=== PATIENT | female | born 1950 | race Caucasian/White ===

== ENCOUNTER → 2018-12-02 | Day surgery (SDC) | payer MEDICARE, SELFPAY | END | disposition home or self-care (01) | PROVIDERS: PCP Family Medicine; Visit Provider Internal Medicine Gastroenterology | DX: K21.0 Gastro-esophageal reflux disease with esophagitis (principal); K31.811 Angiodysplasia of stomach and duodenum with bleeding; K44.9 Diaphragmatic hernia without obstruction or gangrene; I10 Essential (primary) hypertension; F17.200 Nicotine dependence, unspecified, uncomplicated; J44.9 Chronic obstructive pulmonary disease, unspecified; G47.30 Sleep apnea, unspecified; R63.4 Abnormal weight loss | CPT/HCPCS: 43239; 88305; J7120; J2704 ==

== ENCOUNTER 2019-07-15 10:34 | Outpatient (CLI) | payer MEDICARE, SELFPAY ==
--- NOTE | ~2019-07-15 | CT_ITS ---
EXAMINATION:CT lung screening DATE: 07/15/2019 11:31 INDICATION: Personal history of tobacco dependence. Current smoker with 46 pack year history. TECHNIQUE: Computed tomography (CT) of the chest was performed without intravenous contrast. Automate d exposure control and iterative reconstruction technique were employed. The dose-length product (DLP ) was 62.28 mGy-cm. COMPARISON: Chest CT 05/20/2018 FINDINGS: There is chronic mild scarring at the lung apices. There is moderate emphysema. There is mi ld bronchiectasis in right middle lobe with mild atelectasis. Again seen is a 5 mm nodule at left michel or fissure. Again seen is a 4 mm nodule in left lower lobe. There are a few scattered 2-3 mm nodules in the lungs. No pleural effusion. The heart size is normal. There are coronary artery calcifications . No pericardial effusion. There is a chronic compression fracture of T11. There is anterior and post erior fusion at T11-T12. There are chronic compression fractures of T8 and L2 vertebral bodies. IMPRESSION: 1. Lung-RADS category 2: Benign appearance or behavior. Continue annual screening with noncontrast lo w-dose chest CT in 12 months. Reviewed, dictated and finalized at location A. IMPRESSION: 1. Lung-RADS category 2: Benign appearance or behavior. Continue annual screeni ng with noncontrast low-dose chest CT in 12 months.
== END 2019-07-15 10:35 | disposition home or self-care (01) ==
PROVIDERS: PCP Family Medicine; Visit Provider Nurse Practitioner Family
DX: Z12.2 Encounter for screening for malignant neoplasm of respiratory organs (principal); Z87.891 Personal history of nicotine dependence
CPT/HCPCS: G0297

== ENCOUNTER → 2020-03-31 10:50 | Outpatient (CLI) | payer MEDICARE, SELFPAY ==
[2020-03-31 22:34] LABS: SARS-CoV-2 RNA PCR Negative
== END ==
PROVIDERS: PCP Family Medicine; Visit Provider Family Medicine
DX: Z20.822 Contact with and (suspected) exposure to COVID-19 (principal); R50.9 Fever, unspecified
CPT/HCPCS: C9803; U0003; U0005

== ENCOUNTER 2022-12-13 14:57 | Outpatient (CLI) | payer MEDICARE, SELFPAY ==
--- NOTE | ~2022-12-13 | XR_ITS ---
[[id number] ] INDICATION: Pleurodynia TECHNIQUE: Frontal projection of the upper ribs, frontal projection of the lower ribs, oblique projec tion of all the ribs, frontal inspiratory chest x-ray for interpretation. FINDINGS: There are no displaced rib fractures identified. There are no soft tissue abnormality see n. The lungs are clear. There is apical pleural thickening/scarring. IMPRESSION: 1:No acute displaced rib fractures. Reviewed, dictated and finalized at location L.
--- NOTE | ~2022-12-13 | XR_ITS ---
XR lumbar spine 2-3V 12/13/2022 15:45 Indication: Low back pain Procedure: 3 views lumbar spine Comparison: 08/09/2004 Findings: Surgical changes consistent with anterior and posterior fusion at L4-5. There is superior e ndplate compression fracture with approximately 30% loss of vertebral body height at L1. Osteopenia. There is disc narrowing at L2-3 and L3-4. There is dextroscoliosis of the thoracolumbar spine. Impression: 1: New age-indeterminate superior endplate compression fracture of L1 with approximately 30% loss of vertebral body height. 2: Moderate lumbar spondylosis with dextroscoliosis and fusion at L4-5. Reviewed, dictated and finalized at location L. Impression: 1: New age-indeterminate superior endplate compression fracture of L1 with appr oximately 30% loss of vertebral body height. 2: Moderate lumbar spondylosis with dextroscoliosis and fusion at L4-5.
== END 2022-12-13 14:58 ==
PROVIDERS: PCP Family Medicine; Visit Provider Family Medicine
DX: M47.896 Other spondylosis, lumbar region (principal); S32.010A Wedge compression fracture of first lumbar vertebra, initial encounter for closed fracture; X58.XXXA Exposure to other specified factors, initial encounter
CPT/HCPCS: 71111; 72100

== ENCOUNTER 2024-05-27 14:54 | Outpatient (CLI) | payer MEDICARE, SELFPAY ==
--- NOTE | ~2024-05-27 | XR_ITS ---
EXAM/PROCEDURE: XR chest 2V - 05/27/2024 15:04 CDT HISTORY: 73 years old Female with COUGH TECHNIQUE: Two view(s) of the chest. COMPARISON: 07/15/2019 FINDINGS: LUNGS/ PLEURA: Lungs are hyperinflated with flattening of the diaphragm and increased lung markings i n both upper lobes, findings seen with COPD. No focal consolidation. No appreciable pneumothorax or l arge pleural effusion. Calcified granulomas again seen. Emphysematous changes are seen. HEART/ MEDIASTINUM: Heart appears normal in size. Atherosclerotic calcifications are seen. Tortuous a kandace. BONES: Degenerative changes. OTHER: Visualized upper abdomen is unremarkable. Bilateral nipple shadows are noted. IMPRESSION: No acute process. COPD. Reviewed, dictated and finalized at location A. IMPRESSION: No acute process. COPD.
== END 2024-05-27 14:55 | disposition home or self-care (01) ==
LOC: MICIMG 14:55
PROVIDERS: PCP Registered Nurse; Visit Provider Registered Nurse
DX: J44.9 Chronic obstructive pulmonary disease, unspecified (principal)
CPT/HCPCS: 71046

== ENCOUNTER 2024-05-27 14:57 | Outpatient (CLI) | payer MEDICARE, SELFPAY ==
--- NOTE | ~2024-05-27 | XR_ITS ---
Thoracic spine: Clinical Indication: Back pain AP and lateral views were performed. There are multiple compression fractures, probably involving T12, T11, T9, and T7. The intervertebral disc spaces appear normal. Paravertebral soft tissues appear normal. Impression: Multiple compression fractures of the thoracic spine, as detailed above. Consider MR to better evalua te for acuity, as indicated. Reviewed, dictated and finalized at location . Impression: Multiple compression fractures of the thoracic spine, as detailed above. Consid er MR to better evaluate for acuity, as indicated.
== END 2024-05-27 14:58 | disposition home or self-care (01) ==
LOC: MICIMG 14:57
PROVIDERS: PCP Nurse Practitioner; Visit Provider Nurse Practitioner
DX: S22.060A Wedge compression fracture of T7-T8 vertebra, initial encounter for closed fracture (principal); S22.070A Wedge compression fracture of T9-T10 vertebra, initial encounter for closed fracture; S22.080A Wedge compression fracture of T11-T12 vertebra, initial encounter for closed fracture; G89.29 Other chronic pain; X58.XXXA Exposure to other specified factors, initial encounter
CPT/HCPCS: 72072

== ENCOUNTER 2024-07-18 13:57 | Outpatient (CLI) | payer MEDICARE, SELFPAY ==
--- NOTE | ~2024-07-18 | XR_ITS ---
XR abdomen/kub 1V Ordering provider: Robyn Luciano, [facility] [employer] History: . Cyst of kidney, acquired . Comparison: None. FINDINGS: BOWEL: Nonobstructive bowel gas pattern. ORGANOMEGALY: None. SIGNIFICANT PATHOLOGIC CALCIFICATIONS: Highly suggestive left kidney stone. OTHER: No free air is seen under the diaphragm. Postoperative changes in the lower lumbar area. Degen erative changes of the spine. IMPRESSION: NO ACUTE ABDOMINAL FINDINGS. Highly suggestive left kidney stone. Noncontrast CT is better for evaluation. Reviewed, dictated and finalized at location A.
== END 2024-07-18 13:58 | disposition home or self-care (01) ==
LOC: MICIMG 13:58
PROVIDERS: PCP Nurse Practitioner; Visit Provider Nurse Practitioner Family
DX: N28.1 Cyst of kidney, acquired (principal)
CPT/HCPCS: 74018